=== PATIENT | male | born 1980 | race Caucasian/White ===

== ENCOUNTER 2024-08-30 09:27 | Outpatient (CLI) | payer BC, SELFPAY | END 2024-08-30 09:28 | disposition home or self-care (01) | PROVIDERS: PCP Emergency Medicine; Visit Provider Emergency Medicine | DX: R03.0 Elevated blood-pressure reading, without diagnosis of hypertension (principal); Z13.6 Encounter for screening for cardiovascular disorders | CPT/HCPCS: 80053; 80061 ==